=== PATIENT | female | born 1965 | race Caucasian/White ===

== ENCOUNTER 2024-09-29 13:48 | Emergency (ER) | payer MEDICAID, SELFPAY ==
[2024-09-29 13:49] VITALS: BP 103/78; PULSE 116; RESP 16; TEMP 37.5; O2SAT 96
[2024-09-29 13:52] VITALS: BP 103/78; PULSE 116; RESP 16; TEMP 37.5; O2SAT 96
--- NOTE | 2024-09-29 13:58 | W.ED.GENAD ---
Discharge Plan Disposition Patient Disposition: Home Condition: Improving Discharge Details Clinical Impression: Asthma, Pneumonia Primary Care Provider: Rosa Kelly ED Provider: Larry Peres Home Meds and New Rx's Prescriptions: New amoxicillin-pot clavulanate 875-125 mg tablet 1 tab PO BID Qty: 14 0RF prednisone 10 mg tablet 10 mg PO DIRECTED Qty: 30 0RF Rx Instructions: see taper instructions 4 tab qd x 3 days, 3 tab qd x 3 days, 2 tab qd x 3 days, 1 tab qd x 3 days Continued albuterol sulfate 0.63 mg/3 mL solution for nebulization 0.63 mg inhalation Q4H albuterol sulfate 90 mcg/actuation HFA aerosol inhaler 2 puff inhalation QID ybgstktma-ywdusgiu-ibuqmgz ala 50-200-25 mg tablet 1 tab PO DAILY budesonide-formoterol 160-4.5 mcg/actuation HFA aerosol inhaler 2 puff inhalation BID ipratropium-albuterol 0.5 mg-3 mg(2.5 mg base)/3 mL solution for nebulization 3 ml inhalation 6XD ipratropium-albuterol 20-100 mcg/actuation mist 1 puff inhalation Q6H ketotifen fumarate 0.025 % (0.035 %) drops 1 drp ophthalmic (eye) BID Rx Instructions: administer at least 8 hours apart montelukast 10 mg tablet 10 mg PO DAILY naproxen 500 mg tablet 500 mg PO BID omeprazole 20 mg capsule,delayed release(DR/EC) 20 mg PO DAILY propranolol 60 mg capsule,extended release 24 hr 60 mg PO DAILY Discharge Instructions Instructions: Asthma, Adult ED, Pneumonia, Adult ED Discharge Data Discharge Physician: Larry Peres HPI General Date/Time Provider Initiated Documentation: 09/29/24 13:51. HPI Narrative: Patient presents emergency department complaining of cough congestions and difficulty breathing for the last 2 days she had an episode like this 2 weeks ago and today she feels that she lost her sense of smell and taste. Denies any fever chills but seems exhausted. Patient does have history of asthma and smokes cigarettes but states that she quit 3 days ago Related Data Home Medications ?Medication ?Instructions ?Recorded ?Confirmed albuterol sulfate 0.63 mg/3 mL 0.63 mg inhalation Q4H 07/18/24 09/29/24 solution for nebulization albuterol sulfate 90 mcg/actuation 2 puff inhalation QID 07/18/24 09/29/24 aerosol inhaler bictegravir 50 mg-emtricitabine 1 tab PO DAILY 07/18/24 09/29/24 200 mg-tenofovir alafenam 25 mg tablet budesonide-formoterol HFA 160 2 puff inhalation BID 07/18/24 09/29/24 mcg-4.5 mcg/actuation aerosol inhaler ipratropium 0.5 mg-albuterol 3 mg 3 ml inhalation 6XD 07/18/24 09/29/24 (2.5 mg base)/3 mL nebulization soln ipratropium 20 mcg-albuterol 100 1 puff inhalation Q6H 07/18/24 09/29/24 mcg/actuation mist for inhalation ketotifen fumarate 0.025 % (0.035 1 drp ophthalmic (eye) BID 07/18/24 09/29/24 %) eye drops montelukast 10 mg tablet 10 mg PO DAILY 07/18/24 09/29/24 naproxen 500 mg tablet 500 mg PO BID 07/18/24 09/29/24 omeprazole 20 mg capsule,delayed 20 mg PO DAILY 07/18/24 09/29/24 release propranolol 60 mg capsule,24 60 mg PO DAILY 07/18/24 09/29/24 hr,extended release amoxicillin 875 mg-potassium 1 tab PO BID #14 tabs 09/29/24 clavulanate 125 mg tablet prednisone 10 mg tablet 10 mg PO DIRECTED #30 tabs 09/29/24 Previous Rx's ?Medication ?Instructions ?Recorded amoxicillin 875 mg-potassium 1 tab PO BID #14 tabs 09/29/24 clavulanate 125 mg tablet prednisone 10 mg tablet 10 mg PO DIRECTED #30 tabs 09/29/24 Allergies Allergy/AdvReac Type Severity Reaction Status Date / Time aspirin Allergy Unknown other Verified 09/29/24 13:53 diphenhydramine (From Allergy Unknown Other (See Verified 09/29/24 13:53 Benadryl) Comment) erythromycin base (From Allergy Unknown other Verified 09/29/24 13:53 Erythrocin) red dye Allergy Unknown Other (See Verified 09/29/24 13:53 Comment) General Stated Complaint: RespSymp JAYSHREE: 3 Review of Systems Narrative: Review of Systems: Constitutional: No fevers, chills, sweats Eye: No recent visual problems ENT: No ear pain, nasal congestion, sore throat Cardiovascular: No Chest pain, palpitations, syncope Gastrointestinal: No nausea, vomiting, diarrhea Genitourinary: No hematuria Greg/Lymph: Negative for bruising tendency, swollen lymph glands Endocrine: Negative for excessive thirst, excessive hunger Musculoskeletal: No back pain, neck pain, joint pain, muscle pain, decreased range of motion Integumentary: No rash, pruritus, abrasions Neurologic: Alert & oriented X 4 Psychiatric: No anxiety, depression Exam Narrative Exam Narrative: Exam; vitals signs as reported above normal Constitutional; In no acute distress, afebrile General: cooperative, healthy appearing, comfortable and no acute distress HEENT: Head: normal to inspection, no palpable skull fracture and normocephalic atraumatic Eyes: : appearance normal, both eyes and all related structures EOM intact bilaterally Pupils: PERRL : conjunctiva normal Direct ophthalmoscopy: normal light reflex, normal conjunctiva, normal visual acuity Ears: Normal TM, normal external canal Nose: normal no rhinorreha Neck no JVD, supple non tender Neck: normal visual inspection, full ROM and no lymphadenopathy Chest: normal inspection of the chest Respiratory : normal respiratory effort and able to speak in complete sentences bilateral wheezing no rales Cardio Rate: regular rate, rhythm: regular rhythm normal heart sounds S1 and S2 no murmurs, gallops, or rubs GI : normal to inspection, normal bowel sounds, soft, non tender, non distended, no organomegaly Back/Spine/ no CVA tenderness Thoracic/Lumbar Spine: no tenderness or deformities Skin no rashes or lesions Neuro: patient alert oriented x 4 and no meningeal signs, Cranial Nerves: CN's II-XI intact bilaterally, Cognition: normal cognition, Speech: speech normal, Gait: normal gait, Depp tendon reflexes normal 2+ muscle strength 5/5 bilaterally Extremities, no edema, full range of motion, normal strength Course Vital Signs Vital signs: Vital Signs Temperature 37.5 C 09/29/24 13:49 Pulse 116 H 09/29/24 13:49 Respiratory Rate 16 09/29/24 13:49 Blood Pressure 103/78 09/29/24 13:49 Pulse Oximetry 96 09/29/24 13:49 Temperature 37.5 C 09/29/24 13:52 Temperature Source Oral 09/29/24 13:52 Pulse 116 H 09/29/24 13:52 Respiratory Rate 16 09/29/24 13:52 Blood Pressure 103/78 09/29/24 13:52 Pulse Oximetry 96 09/29/24 13:52 Pain Level 0 09/29/24 13:52 Medical Decision Making MDM: Summary: Patient presented to the emergency department complaining of shortness of breath cough with audible wheezes. She also says she lost the sense of smell. COVID was done which was negative as well as influenza labs did not show any white count. X-ray does show a nodule density which could be early pneumonia. Patient is a smoker. Patient will be treated with antibiotics as well as a prednisone and received a DuoNeb here with improvement of her wheezing she will be discharged home on antibiotics and a tapering dose of prednisone Data Review Analysis All the data on this patient was reviewed by me including laboratory and imaging studies as well as bedside studies performed by me Independent review of Studies Imaging As reported above Lab: Labs are unremarkable Risk Stratification: Patient with early pneumonia who will be treated as well as bronchospasm with prednisone and antibiotics Differential Diagnosis: 1. Asthma exacerbation 2. Pneumonia 3. Bronchitis 4. COVID-19 5. Consultants: Shared disposition: Patient understands disposition will follow accordingly Impression: Medical Records Medical records reviewed: Yes I reviewed the patient's medical records. Lab Data Lab results reviewed: Yes I reviewed the patient's lab results. 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
--- NOTE | 2024-09-29 14:15 | DI.RAD_ITS ---
Exam(s) XR PORTABLE CHEST AP EXAM: XR PORTABLE CHEST AP CLINICAL HISTORY: sob. TECHNIQUE: 2D digital imaging was performed. COMPARISON: CR XR CHEST 1 VW from 04/14/2024 FINDINGS: Single AP portable view. Heart size is upper normal. The mediastinum is not widened. Right lung is clear. There is a small 3 millimeter nodular density in the lateral left lung base, not evident on prior outside chest x-ray of 04/14/2024 No confluent infiltrates and no pleural effusions. IMPRESSION: Small nodular density in the lateral left lung base measuring 3 mm. Was not evident on prior chest x-ray of 04/14/2024 DATA REPOSITORY: RADIATION DOSE DELIVERED:
[2024-09-29 14:36] LABS: COVID-19 PCR Negative (Negative); RSV PCR Negative (Negative)
[2024-09-29 14:59] LABS: Abs Immature Grans 0.04 10^3/uL (0.0-0.06); HCT 46.9 % (36.0-46.0); HGB 16.1 g/dL (11.2-15.7); Immature Grans % 0.9 %; MCH 30.8 pg (27.0-33.0); MCHC 34.3 % (32.0-36.0); MCV 90 fL (80-95); MPV 11.5 fL (8.0-11.0); Platelet Count 114 10^3/uL (130-400); RBC 5.23 10^6/uL (3.93-5.22); RDW 13.1 % (11.7-14.6); RDW-SD 43.2 fL; WBC 4.70 10^3/uL (4.4-10.8)
[2024-09-29 15:07] LABS: ALT 84 U/L (14-59); AST 93 U/L (15-37); Albumin 3.7 g/dL (3.4-5.0); Alkaline Phosphatase 116 U/L (46-116); Anion Gap 13.8 mmol/L (3-11); BUN 18 mg/dL (7-18); Bilirubin, Total 0.9 mg/dL (0.2-1.0); CO2 22.2 mmol/L (21.0-32.0); Calcium 9.4 mg/dL (8.5-10.1); Chloride 103 mmol/L (98-107); Estimated GFR 57.17 (mL/min/1.73m2); Glucose 146 mg/dL (74-106); Potassium 3.7 mmol/L (3.5-5.1); Sodium 139 mmol/L (136-145); Total Protein 7.5 g/dL (6.4-8.2)
[2024-09-29] MEDS: Albuterol/Ipratropium 3 ML UPD VIAL UPD (16:02)
[2024-09-29] MEDS: predniSONE 20 MG TAB 60 MG PO (16:02)
== END 2024-09-29 16:18 | disposition home or self-care (01) ==
PROVIDERS: Emergency Medicine; Emergency Provider Emergency Medicine Emergency Medical Services; PCP Nurse Practitioner Family
DX: J18.9 Pneumonia, unspecified organism (principal); J44.9 Chronic obstructive pulmonary disease, unspecified; F17.200 Nicotine dependence, unspecified, uncomplicated
CPT/HCPCS: 36415; 80053; 87637; 94640; 99284; 71045; 85025; J7512; J7620

== ENCOUNTER 2024-10-12 12:50 | Emergency (ER) | payer MEDICAID, SELFPAY ==
--- NOTE | 2024-10-12 12:45 | RT.EKG_ITS ---
APPROVED REPORT Exam: Resting ECG Reason for Exam: SOB Patient Location: E HR:71 bpm ECG Measurements Heart Rate 71 AXIS AL 136 P 26 QRSd 87 QRS -11 QT 359 T 12 QTc 391 Conclusion Sinus rhythm...normal P axis, V-rate 60- 99 Sinus Rhythm. No prior. WD
[2024-10-12 12:54] VITALS: BP 148/86; PULSE 96; RESP 16; TEMP 36.5; O2SAT 97
[2024-10-12 13:00] VITALS: BP 148/94; PULSE 90; RESP 20; TEMP 36.4; O2SAT 97
--- NOTE | 2024-10-12 13:21 | W.ED.GENAD ---
Discharge Plan Disposition Patient Disposition: Home Condition: Stable Discharge Details Clinical Impression: Asthma Primary Care Provider: Rosa Kelly ED Provider: Noam Miguel Home Meds and New Rx's Prescriptions: New prednisone 20 mg tablet 40 mg PO DAILY 5 Days Qty: 10 0RF benzonatate 150 mg capsule 150 mg PO BID-TID PRNQty: 30 0RF Continued albuterol sulfate 0.63 mg/3 mL solution for nebulization 0.63 mg inhalation Q4H albuterol sulfate 90 mcg/actuation HFA aerosol inhaler 2 puff inhalation QID itinmptgd-cezysizz-vjwxrfe ala 50-200-25 mg tablet 1 tab PO DAILY budesonide-formoterol 160-4.5 mcg/actuation HFA aerosol inhaler 2 puff inhalation BID ipratropium-albuterol 0.5 mg-3 mg(2.5 mg base)/3 mL solution for nebulization 3 ml inhalation 6XD ipratropium-albuterol 20-100 mcg/actuation mist 1 puff inhalation Q6H ketotifen fumarate 0.025 % (0.035 %) drops 1 drp ophthalmic (eye) BID Rx Instructions: administer at least 8 hours apart montelukast 10 mg tablet 10 mg PO DAILY naproxen 500 mg tablet 500 mg PO BID omeprazole 20 mg capsule,delayed release(DR/EC) 20 mg PO DAILY propranolol 60 mg capsule,extended release 24 hr 60 mg PO DAILY No Action umeclidinium-vilanterol [Anoro Ellipta] 62.5-25 mcg/actuation blister with device 1 inh inhalation DAILY Patient Comments: ordered by previous MD in [facility] Arnuity Ellipta 100 mcg/actuation blister with device 1 inh inhalation DAILY Patient Comments: prescribed by MD in [facility] Monet Aerosphere 160-9-4.8 mcg/actuation HFA aerosol inhaler 2 inh inhalation BID Qty: 10.7 12RF prednisone 10 mg tablet 10 mg PO DAILY Qty: 34 0RF Rx Instructions: Take 40mg (4 tablets) one a day for 4 days, 30mg (3 tablets) once a day for 3 days, 20mg (2 tablets) once a day for 3 days , 10mg (1 tablet) for 2 days, 5mg (0.5 tablets) for 2 days sulfamethoxazole-trimethoprim [Bactrim DS] 800-160 mg tablet 1 tab PO BID Qty: 10 0RF Discharge Instructions Instructions: Benzonatate, Prednisone, Asthma, Adult ED Additional Instructions: You were seen in the emergency department for your possible COPD versus asthma exacerbation likely due to the air quality lately, there is no pneumonia seen on your chest x-ray so I think you can skip antibiotics for now, I did send 5 days of prednisone as well as a cough suppressant to help with your nighttime awakenings, please continue your increased use as needed of your at home asthma and respiratory treatments. Take Tylenol and ibuprofen as needed and return for any respiratory distress or other emergent concerns. Referrals: Rosa Kelly [Primary Care Provider, Medicine] Discharge Data Discharge Date/Time-TO BE ENTERED AT DEPARTURE: 10/12/24 15:04 HPI General Date/Time Provider Initiated Documentation: 10/12/24 13:01. HPI Narrative: 59 year-old female presents to ED today by POV/ambulating with a chief complaint of cough, labored respirations with frequent bouts of pneumonia for the past few months with onset this past week. Patient has asthma, and is a smoker without confirmed COPD diagnosis. Quality described as just has a cough, worse at nighttime, no radiation to fever, chest pain, abdominal pain, near syncope. Severity is described as moderate. Palliating factors include at-home nebulizer treatments. Provoking factors include nothing specific. Events leading up to the incident/Associated Symptoms: Patient had antibiotics for PNA earlier this month. Patient not anticoagulated. Related Data Home Medications ?Medication ?Instructions ?Recorded ?Confirmed albuterol sulfate 0.63 mg/3 mL 0.63 mg inhalation Q4H 07/18/24 10/13/24 solution for nebulization albuterol sulfate 90 mcg/actuation 2 puff inhalation QID 07/18/24 10/13/24 aerosol inhaler bictegravir 50 mg-emtricitabine 1 tab PO DAILY 07/18/24 10/13/24 200 mg-tenofovir alafenam 25 mg tablet budesonide-formoterol HFA 160 2 puff inhalation BID 07/18/24 10/12/24 mcg-4.5 mcg/actuation aerosol inhaler ipratropium 0.5 mg-albuterol 3 mg 3 ml inhalation 6XD 05/05/25 07/31/25 (2.5 mg base)/3 mL nebulization soln ipratropium 20 mcg-albuterol 100 1 puff inhalation Q6H 07/18/24 10/13/24 mcg/actuation mist for inhalation ketotifen fumarate 0.025 % (0.035 1 drp ophthalmic (eye) BID 07/18/24 10/13/24 %) eye drops montelukast 10 mg tablet 10 mg PO DAILY 07/18/24 10/13/24 naproxen 500 mg tablet 500 mg PO BID 07/18/24 10/13/24 omeprazole 20 mg capsule,delayed 20 mg PO DAILY 07/18/24 10/13/24 release propranolol 60 mg capsule,24 60 mg PO DAILY 07/18/24 10/13/24 hr,extended release benzonatate 150 mg capsule 150 mg PO BID-TID PRN #30 caps 10/12/24 10/13/24 prednisone 20 mg tablet 40 mg (2 x 20 mg) PO DAILY 5 days 10/12/24 10/13/24 #10 tabs budesonide 160 mcg-glycopyr 9 2 inh inhalation BID #10.7 grams 10/13/24 10/13/24 mcg-formot 4.8 mcg/actuation HFA inhaler (Breztri Aerosphere) fluticasone furoate 100 1 inh inhalation DAILY 10/13/24 10/13/24 mcg/actuation blister powder for inhalation (Arnuity Ellipta) prednisone 10 mg tablet 10 mg PO DAILY #34 tabs 10/13/24 10/13/24 sulfamethoxazole 800 1 tab PO BID #10 tabs 10/13/24 10/13/24 mg-trimethoprim 160 mg tablet (Bactrim DS) umeclidinium 62.5 mcg-vilanterol 1 inh inhalation DAILY 10/13/24 10/13/24 25 mcg/actuation powdr for inhalation (Anoro Ellipta) Previous Rx's ?Medication ?Instructions ?Recorded benzonatate 150 mg capsule 150 mg PO BID-TID PRN #30 caps 10/12/24 prednisone 20 mg tablet 40 mg (2 x 20 mg) PO DAILY 5 days 10/12/24 #10 tabs budesonide 160 mcg-glycopyr 9 2 inh inhalation BID #10.7 grams 10/13/24 mcg-formot 4.8 mcg/actuation HFA inhaler (Breztri Aerosphere) prednisone 10 mg tablet 10 mg PO DAILY #34 tabs 10/13/24 sulfamethoxazole 800 1 tab PO BID #10 tabs 10/13/24 mg-trimethoprim 160 mg tablet (Bactrim DS) Allergies Allergy/AdvReac Type Severity Reaction Status Date / Time azithromycin Allergy Intermediate Skin Rash Verified 10/13/24 08:06 Gadolinium-Containing Allergy Intermediate Nausea Verified 10/13/24 08:06 Contrast Medi ketorolac Allergy Intermediate Skin Rash Verified 10/13/24 08:06 meloxicam Allergy Intermediate Skin Rash Verified 10/13/24 08:06 nitrofurantoin Allergy Intermediate Skin Rash Verified 10/13/24 08:06 phenazopyridine Allergy Intermediate Skin Rash Verified 10/13/24 08:06 aspirin Allergy Unknown other Verified 10/13/24 07:58 diphenhydramine (From Allergy Unknown Other (See Verified 10/13/24 07:58 Benadryl) Comment) efavirenz Allergy Unknown Other (See Verified 10/13/24 08:06 Comment) erythromycin base (From Allergy Unknown other Verified 10/13/24 07:58 Erythrocin) red dye Allergy Unknown Other (See Verified 10/13/24 07:58 Comment) General Stated Complaint: SOB JAYSHREE: 3 Review of Systems All systems reviewed & are unremarkable except as noted in HPI and below Exam Narrative Exam Narrative: GENERAL APPEARANCE: Well-nourished, non-toxic, awake and alert, atraumatic, no acute distress. SKIN: Warm, pink, dry, intact, without rashes/lesions/ulcerations. HEAD: Normocephalic, atraumatic, normal hair distribution for gender/age. EYES: Normal conjunctiva, no exudates on lids/lashes. ENT: Nares patent, no circumoral cyanosis, no facial swelling NECK: Supple, trachea midline, painless cervical ROM. LUNGS/CHEST: Lungs CTA bilaterally- no wheezing, non-labored respirations, normal A/P diameter, symmetrical expansion, no chest wall deformity HEART (CV/PV): Regular rate and rhythm without murmur, no peripheral edema, no JVD. ABDOMEN: Soft, non-distended, no guarding. MSK: Normal ROM, no swelling/deformity to bilateral UEs or LEs, moving all extremities without weakness, no cyanosis, spine midline without tenderness, normal curvature. NEURO: Mental Status AAOx4 - alert to person, place, time, events No facial droop, no forehead involvement. Motor: No focal weakness - strength 5/5 in bilateral UEs and LEs, proximal and distal, symmetric. Sensory: sensation intact to light touch globally. Gait normal: patient ambulated without ataxia into ED room. PSYCH: euthymic, cooperative, pleasant, appropriate speech Course Vital Signs Vital signs: Vital Signs Temperature 36.5 C 10/12/24 12:54 Pulse 96 H 10/12/24 12:54 Respiratory Rate 16 10/12/24 12:54 Blood Pressure 148/86 H 10/12/24 12:54 Pulse Oximetry 97 10/12/24 12:54 Temperature 36.5 C 10/12/24 12:54 Temperature Source Oral 10/12/24 12:54 Pulse 96 H 10/12/24 12:54 Respiratory Rate 16 10/12/24 12:54 Blood Pressure 148/86 H 10/12/24 12:54 Blood Pressure Position Sitting 10/12/24 12:54 Pulse Oximetry 97 10/12/24 12:54 Oxygen Delivery Method Room Air 10/12/24 12:54 Oxygen Flow Rate 0 10/12/24 12:54 Pain Level 5 10/12/24 12:54 Medical Decision Making This dictation utilizes [id number] dictation software and may contain unedited grammatical errors. 59 year-old female presents to ED today by POV/ambulating with a chief complaint of cough, labored respirations with frequent bouts of pneumonia for the past few months with onset this past week. Patient has asthma, and is a smoker without confirmed COPD diagnosis. Quality described as just has a cough, worse at nighttime, no radiation to fever, chest pain, abdominal pain, near syncope. Severity is described as moderate. Palliating factors include at-home nebulizer treatments. Provoking factors include nothing specific. Events leading up to the incident/Associated Symptoms: Patient had antibiotics for PNA earlier this month. Patients' medical history: Asthma, pneumonia, seasonal allergies, migraines. Family and social history: heavy tobacco use for decades. Pertinent exam findings / vital signs include no overt wheezing, no hypoxia, stable vitals, nontoxic. Differential / pathologies of concern include asthma exacerbation, COPD exacerbation, PNA, viral syndrome. Diagnostic studies of: -POC Covid/Flu - negative. -XR Chest - no PNA Interventions of: -Rx for 5 days of prednisone. Benzonatate for qHS PRN use ED Course/Assessment/Plan: 59-year-old female presents with worse nighttime awakenings and known chronic asthma and heavy smoking for decades, no confirmed diagnosis of COPD known and recent bouts of pneumonia for the past few months a few different times. I think she is having asthma/COPD exacerbation due to the poor air quality lately and her chronic tobacco use. She has plenty of at home breathing treatments, no pneumonia seen on chest x-ray and is COVID flu negative, no hypoxia or respiratory distress here, started on prednisone and benzonatate for relief of nighttime awakenings with cough suppression, strict return criteria for any respiratory distress. Findings not consistent with pneumonia, PTX, respiratory distress or failure. Disposition of Asthma. Patient verbalized understanding of the plan and return to ED criteria and engaged in shared decision making. Medical Records Medical records reviewed: Yes I reviewed the patient's medical records. Imaging Data Radiologic Study: Attestation: I personally reviewed and interpreted this imaging study as follows: Imaging: X-Ray Radiologist's impression: EXAM: XR CHEST 2V PA LATERAL CLINICAL HISTORY: cough TECHNIQUE: 2D digital imaging was performed. Two views. COMPARISON: CR XR CHEST 1 VW from 04/14/2024 CR XR PORTABLE CHEST AP from 09/29/2024 FINDINGS: HEART: Normal size. Aorta: Not dilated. PULMONARY VASCULATURE: Normal. MEDIASTINUM: Unremarkable. LUNGS: Clear. PLEURAL SPACE: No pleural effusion or pneumothorax. BONE:Unremarkable for age. SOFT TISSUES: Unremarkable. IMPRESSION: No acute abnormality. Lab Data Lab results reviewed: Yes I reviewed the patient's lab results. 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
--- NOTE | 2024-10-12 13:30 | DI.RAD_ITS ---
Exam(s) XR CHEST 2V PA LATERAL EXAM: XR CHEST 2V PA LATERAL CLINICAL HISTORY: cough TECHNIQUE: 2D digital imaging was performed. Two views. COMPARISON: CR XR CHEST 1 VW from 04/14/2024 CR XR PORTABLE CHEST AP from 09/29/2024 FINDINGS: HEART: Normal size. Aorta: Not dilated. PULMONARY VASCULATURE: Normal. MEDIASTINUM: Unremarkable. LUNGS: Clear. PLEURAL SPACE: No pleural effusion or pneumothorax. BONE:Unremarkable for age. SOFT TISSUES: Unremarkable. IMPRESSION: No acute abnormality. DATA REPOSITORY: RADIATION DOSE DELIVERED:
[2024-10-12 13:42] VITALS: RESP 20
[2024-10-12 15:03] VITALS: BP 144/88; PULSE 80; RESP 14; O2SAT 94
== END 2024-10-12 15:04 | disposition home or self-care (01) ==
PROVIDERS: Emergency Provider Physician Assistant; PCP Nurse Practitioner Family
DX: J45.909 Unspecified asthma, uncomplicated (principal); F17.210 Nicotine dependence, cigarettes, uncomplicated
CPT/HCPCS: 82962; 93005; 99285; 71046; 93010; 99284

== ENCOUNTER 2024-10-19 01:40 | Outpatient (CLI) | payer MEDICAID, SELFPAY ==
--- NOTE | 2024-10-19 08:30 | DI.CT_ITS ---
Exam(s) CT CHEST WO EXAM: CT CHEST WO CLINICAL HISTORY: pneumonia x5 and coughing,tobacco user,asthma,z72.0,j45.909. TECHNIQUE: Multi planar reconstructions were performed. CONTRAST MATERIAL: None COMPARISON: CT CT CTA CHEST W AND/OR WO CONTRAST from 08/23/2024 CR XR CHEST 2V PA LATERAL from 10/12/2024 FINDINGS: CHEST: LUNGS: The infiltrate which was evident in the right lung on CT images of 08/23/2024 has resolved. There is no remaining infiltrate in the right lung and no pleural effusion. There is a small 2-3 mm noncalcified nodule in the lateral aspect of the right upper lobe again noted. There is also a small benign- appearing pleural-based 3 millimeter density in the lateral aspect of the right middle lobe. There are no pleural effusions. No significant focal findings in the trachea and mainstem bronchi and there is no bronchiectasis. MEDIASTINUM: There is no obvious hilar nor mediastinal adenopathy. Partially visualized thyroid appears unremarkable.No obvious axillary adenopathy CARDIAC: Heart size is normal. There is no pericardial effusion.Caliber of the thoracic aorta is within normal limits. VISUALIZED UPPER ABDOMEN:No adrenal masses. Prior cholecystectomy. Hepatic steatosis again noted. OSSEOUS: No significant osseous lesions.. IMPRESSION: 1. Compared to the prior CT scan of 08/23/2024 performed at [facility] the significant previously described right lung infiltrates have resolved. There presently no infiltrates and no pleural effusions. No obvious adenopathy. 2. A few small tiny benign-appearing nodules in the right lung are unchanged. Recommend follow-up CT scan in 1 year, earlier if clinically indicated. RADIATION DOSE DELIVERED: 205.26mGy.cm Total DLP DATA REPOSITORY: All CT scans at this facility are submitted to the National Radiology Data Registry (NRDR) Dose Index Registry (DIR) with the [employer] ([employer]). RADIATION OPTIMIZATION: All CT scans at this facility use at least one of these dose optimization techniques: automated exposure control; mA and/or kV adjustment per patient size (includes targeted exams where dose is matched to clinical indication); or iterative reconstruction.
== END 2024-10-19 02:00 ==
LOC: DI 01:41
PROVIDERS: PCP Nurse Practitioner Family; Visit Provider Physician Assistant Surgical
DX: J45.909 Unspecified asthma, uncomplicated (principal); Z72.0 Tobacco use
CPT/HCPCS: 71250

== ENCOUNTER 2024-10-20 04:53 | Outpatient (CLI) | payer MEDICAID, SELFPAY ==
--- NOTE | 2024-10-24 14:27 | W.PFT ---
Date of service: 10/20/24 Time of Service: 12:54 Pulmonary Function Test Result Indications: Asthma Impression 1. Good patient effort was noted. ATS standards for reproducibility were met. 2. Normal spirometry. 3. TLC was normal. No evidence of restrictive lung disease 4. DLCO was normal indicating normal alveolar gas exchange
== END 2024-10-20 04:54 | disposition home or self-care (01) ==
LOC: RT 04:53
PROVIDERS: PCP Nurse Practitioner Family; Visit Provider Physician Assistant Surgical
DX: J45.909 Unspecified asthma, uncomplicated (principal)
CPT/HCPCS: 94010; 94726; 94729